=== PATIENT | male | born 1965 | race Caucasian/White ===

== ENCOUNTER 2016-11-07 22:49 | Emergency (ER) | payer OTHER, SELFPAY ==
[2016-11-07] MEDS ORDERED: Clindamycin 150 MG CAP ONE (23:35)
[2016-11-07] MEDS ORDERED: Ibuprofen 800 MG TAB ONE (23:43)
[2016-11-07] MEDS ORDERED: HYDROcodone/Acetaminophen 10/325 mg Tablet ONE (23:43)
== END 2016-11-08 00:05 | disposition home or self-care (01) ==
LOC: MADERS 22:49
DX: K02.9 Dental caries, unspecified (principal); K03.81 Cracked tooth; F17.210 Nicotine dependence, cigarettes, uncomplicated
CPT/HCPCS: 99282